=== PATIENT | female | born 1990 ===

== ENCOUNTER 2018-03-04 22:10 | Emergency (ER) | payer OTHER ==
[2018-03-04 22:43] VITALS: BP 113/75; PULSE 82; RESP 18; TEMP 98.8; O2SAT 97
--- NOTE | 2018-03-04 23:12 | C.PDOC ---
History Of Present Illness 27 year old female presents to the ER for evaluation after she woke up from bed, yawned, felt her jaw tighten, and felt like her temples were swollen. Patient states she feels better upon arrival to ER. Denies facial pain, jaw pain or trauma. Time Seen by Provider: 03/04/18 22:48 Chief Complaint (Nursing): Medical Clearance History Per: Patient History/Exam Limitations: no limitations Onset/Duration Of Symptoms: Hrs Current Symptoms Are (Timing): Better Recent travel outside of the [place]: No Past Medical History Reviewed: Historical Data, Nursing Documentation, Vital Signs Vital Signs: Last Vital Signs Temp 98.8 F 03/04/18 22:35 Pulse 82 03/04/18 22:35 Resp 18 03/04/18 22:35 BP 113/75 03/04/18 22:35 Pulse Ox 97 03/04/18 22:35 Family History: States: Unknown Family Hx - Social History Hx Alcohol Use: Yes Hx Substance Use: No - Immunization History Hx Tetanus Toxoid Vaccination: No Hx Influenza Vaccination: No Hx Pneumococcal Vaccination: No Review Of Systems Constitutional: Negative for: Fever, Chills ENT: Positive for: Other (temples swollen) Physical Exam - Physical Exam Appears: Non-toxic Skin: Normal Color, Warm, Dry Head: Atraumatic, Normacephalic, No Tenderness, No Swelling Eye(s): bilateral: Normal Inspection Ear(s): Bilateral: Normal Nose: Normal Oral Mucosa: Moist, No Trismus, Other (No TMJ tenderness or swelling, able to open and close mouth normally) Teeth: Normal Dentition, No Tender To Palpation Gingiva: Normal Appearing, No Swelling, No Tender Throat: Normal, No Erythema, No Exudate Neck: Normal, Normal ROM, No Midline Cervical Tenderness, No Paracervical Tenderness, Supple Neurological/Psych: Oriented x3, Normal Speech ED Course And Treatment O2 Sat by Pulse Oximetry: 97 (Room air) Pulse Ox Interpretation: Normal Progress Note: Patient is resting comfortably in the ER in no acute distress, vitals are stable, will discharge home with instructions to follow up with PMD for further evaluation or return if symptoms worsen. Disposition Counseled Patient/Family Regarding: Diagnosis, Need For Followup, Rx Given - Disposition Disposition: HOME/ ROUTINE Disposition Time: 23:09 Condition: STABLE Additional Instructions: Please follow up with PMD Take tylenol or advil for pain Return to ER if worse Instructions: Temporomandibular Joint (TMJ) Disorders (DC) Forms: [employer] (Khmer) - Clinical Impression Clinical Impression: Temporomandibular joint disorder (TMJ) - PA / ROR ENGINEER / Resident Statement MD/DO has reviewed & agrees with the documentation as recorded. - Scribe Statement The provider has reviewed the documentation as recorded by the Scribe Nelson Root All medical record entries made by the Patoibbrianna were at my direction and personally dictated by me. I have reviewed the chart and agree that the record accurately reflects my personal performance of the history, physical exam, medical decision making, and the department course for this patient. I have also personally directed, reviewed, and agree with the discharge instructions and disposition.
== END 2018-03-04 23:26 | disposition home or self-care (01) ==
LOC: C.ER 22:10
DX: M26.609 Unspecified temporomandibular joint disorder, unspecified side (principal)